=== PATIENT | male | born 1965 | race Caucasian/White ===

== ENCOUNTER 2017-10-27 06:16 | Day surgery (SDC) | payer OTHER ==
[~2017-10-27] VITALS: Ht 175.3 cm; Wt 104.3 kg
[2017-10-27 06:50] VITALS: BP 161/88
[2017-10-27 10:23] VITALS: BP 162/93
[2017-10-27 10:50] VITALS: BP 135/86
== END 2017-10-27 11:02 | disposition home or self-care (01) ==
LOC: SDC 06:16 → EDSTATUS 09:29 → SDC 09:29 → 2SOUTH 09:29 → SDC 11:02
DX: H35.371 Puckering of macula, right eye (principal); H35.81 Retinal edema; E66.9 Obesity, unspecified; Z68.38 Body mass index [BMI] 38.0-38.9, adult; R03.0 Elevated blood-pressure reading, without diagnosis of hypertension; K21.9 Gastro-esophageal reflux disease without esophagitis; Z86.718 Personal history of other venous thrombosis and embolism; Z86.711 Personal history of pulmonary embolism
CPT/HCPCS: J0690; J0713; J1100; J2405; J3300